=== PATIENT | male | born 1960 | race Caucasian/White ===

== ENCOUNTER 2020-06-26 13:28 | Outpatient (CLI) | payer OTHER, SELFPAY ==
--- NOTE | 2020-06-26 10:45 | DI.RAD_ITS ---
EXAM: XR RIBS LT W PA LAT CHEST CLINICAL HISTORY: left posterior rib pain, fall RIB PAIN LT SIDE, R07.81 PLEURODYNIA TECHNIQUE: 2D digital imaging was performed. COMPARISON: No exams were available for comparison FINDINGS: MEDIASTINUM: Normal. HEART: Normal. PULMONARY VASCULATURE: Normal. LUNGS: Clear. PLEURAL SPACE: No pleural effusion or pneumothorax. BONE:Normal. LEFT RIBS: There appears to be a nondisplaced fracture of the posterior aspect of the left 9th rib. OTHER FINDINGS:Normal. IMPRESSION: 1. No acute pulmonary findings. 2. Nondisplaced fracture of the posterior aspect of the left 9th rib. DATA REPOSITORY: RADIATION DOSE DELIVERED:
== END 2020-06-26 13:48 ==
PROVIDERS: Visit Provider Physician Assistant
DX: S22.31XA Fracture of one rib, right side, initial encounter for closed fracture (principal)
CPT/HCPCS: 71046; 71100

== ENCOUNTER 2023-06-11 06:40 | Emergency (ER) | payer OTHER, SELFPAY ==
[2023-06-11 06:45] VITALS: BP 190/90; PULSE 71; RESP 16; TEMP 36.5; O2SAT 94
[2023-06-11 06:57] VITALS: BP 190/90; PULSE 71; RESP 16; TEMP 36.5; O2SAT 94
--- NOTE | 2023-06-11 07:00 | DI.CT_ITS ---
Exam(s) CT HEAD CERVICAL SPINE WO EXAM: CT HEAD CERVICAL SPINE WO CLINICAL HISTORY: pain s/p fall. TECHNIQUE: Imaging Protocol: Axial computed tomography images with coronal and sagittal reformatted images were created and reviewed COMPARISON: No exams were available for comparison FINDINGS: Head CT Ventricles and Extra axial spaces: Normal in size and morphology for the patient's age. Hemorrhage: None. Cerebral parenchyma: No evidence of mass or acute infarct. Midline shift: None. Brainstem/Cerebellum: Normal. Calvarium: Normal. Visualized Paranasal sinuses/Mastoids: Mucosal thickening in the left frontal, left ethmoids and left maxillary sinuses. Soft tissues: Unremarkable. Cervical Spine CT BONES: Vertebral body heights are maintained. Alignment is normal. There is no evidence of acute frac ture. Mild degenerative disc changes and facet degenerative changes are seen . SOFT TISSUES: No paraspinal hematoma. The airway appears intact. No pneumothorax is seen at the lung apices. IMPRESSION: Head CT: No acute abnormality. C-spine CT: Mild degenerative changes, no acute abnormality. RADIATION DOSE DELIVERED: 1,495.48mGy.cm Total DLP DATA REPOSITORY: All CT scans at this facility are submitted to the National Radiology Data Registry (NRDR) Dose Index Registry (DIR) with the [employer] ([employer]). RADIATION OPTIMIZATION: All CT scans at this facility use at least one of these dose optimization te chniques: automated exposure control; mA and/or kV adjustment per patient size (includes targeted exa ms where dose is matched to clinical indication); or iterative reconstruction.
--- NOTE | 2023-06-11 07:10 | ED.GENADUL_ITS ---
HPI General Mode of arrival: ambulatory . Date/Time Provider Initiated Documentation: 06/11/23 07:00 . Limitations to Documentation: no limitations . Information obtained by: patient . History of Present Illness 62 year old M presents to the emergency department with the chief complaint of Headache, described as moderate, Quality is described as aching, and is localized to the head. Patient reports no radiation. Patient started experiencing this day(s) (4) and it has been constant. No relieving factors improve symptom(s), No exacerbating factors reported . Patient notes no other symptoms.. Patient did receive the following treatments prior to arrival, none Related Data Home Medications Medication Instructions Recorded Confirmed aspirin 81 mg tablet,delayed 81 mg PO DAILY 06/26/20 06/11/23 release atorvastatin 20 mg tablet 20 mg PO DAILY 06/26/20 06/11/23 omega-3 fatty acids 1,000 mg 1,000 mg PO BID 06/26/20 06/11/23 capsule (Fish Oil Concentrate) ascorbic acid (vitamin C) 1,000 mg 1 g PO DAILY 06/11/23 06/11/23 tablet cholecalciferol (vitamin D3) 125 5,000 unit PO DAILY 06/11/23 06/11/23 mcg (5,000 unit) capsule (D3-5000) losartan 100 1 tab PO DAILY 06/11/23 06/11/23 mg-hydrochlorothiazide 25 mg tablet (Hyzaar) metformin 1,000 mg tablet 1,000 mg PO BIDWMEAL 06/11/23 06/11/23 Allergies Allergy/AdvReac Type Severity Reaction Status Date / Time No Known Allergies Allergy Verified 06/11/23 06:49 General Stated Complaint: Headache LEA: 3 Review of Systems All systems reviewed & are unremarkable except as noted in HPI and below Constitutional Constitutional: Denies chills, Denies fever(s) and Denies weakness Cardiovascular Cardiovascular: Denies chest pain and Denies dyspnea Respiratory Respiratory: Denies cough and Denies dyspnea Gastrointestinal Gastrointestinal: Denies abdominal pain, Denies nausea and Denies vomiting Integumentary/Breasts Skin/Breast: Denies rash Neurologic Neurologic: Denies weakness Psychiatric Psychiatric: Denies depression Exam Const General: no acute distress Orientation: alert HENMT Head: normal to inspection Ears: external ears normal General nose exam: external nose normal Mouth: moist mucous membranes Eyes General: appearance normal, both eyes and all related structures Neck Neck: normal visual inspection, full ROM, no meningeal signs and trachea midline Resp Effort & Inspection: normal respiratory effort and able to speak in complete sentences Cardio Rate: regular rate Skin General skin exam: no rashes or lesions noted Neuro General: patient alert and patient oriented x3 Extrem General: normal to inspection Psych Mental Status: mental status grossly normal Course Vital Signs Vital signs: Vital Signs Temperature 36.5 C 06/11/23 06:45 Pulse 71 06/11/23 06:45 Respiratory Rate 16 06/11/23 06:45 Blood Pressure 190/90 H 06/11/23 06:45 Pulse Oximetry 94 06/11/23 06:45 Temperature 36.5 C 06/11/23 06:57 Temperature Source Temporal Artery Scan 06/11/23 06:57 Pulse 71 06/11/23 06:57 Respiratory Rate 16 06/11/23 06:57 Respiratory Effort Normal, Non-Labored 06/11/23 06:57 Blood Pressure 190/90 H 06/11/23 06:57 Blood Pressure Position Supine 06/11/23 06:57 Pulse Oximetry 94 06/11/23 06:57 Oxygen Delivery Method Room Air 06/11/23 06:57 Oxygen Flow Rate 0 06/11/23 06:57 Pain Level 6 06/11/23 06:57 Medical Decision Making 62-year-old male with a history of hypertension, diabetes, who comes in with complaint of headache. He states on Friday slipped on ice and fell had no loss of consciousness, is unsure if he hit his head. He states since then he had some neck pain which is more or less resolved but still has a headache. Denies any fevers, vomiting, chest pain, abdominal pain, back pain. He localizes the pain to the front of his head. He is alert and oriented x 4 with a normal gait on arrival, has no focal deficits. Cranial nerves II through XII intact. No significant signs of trauma to the head. He has no midline C-spine tenderness but is tender over the lateral paraspinous muscles bilaterally especially near the occiput. No midline T or L-spine tenderness no chest or abdominal tenderness. Suspect he has a headache from a mild concussion, but given his age and continued head pain will obtain CT head and C-spine to evaluate for traumatic injuries. Would like to give him a nonsteroidal but will rule out hemorrhage before giving this Patient is stable, still ambulating with normal gait, no focal deficits. CT negative for acute findings, suspect concussion. Patient is stable for discharge, advised to follow-up with either his primary care or express care if not better within a week or 2. Return precautions given Differential Diagnosis Differential Diagnosis: concussion, tbi Imaging Data Radiologic Study: Attestation: I personally reviewed and interpreted this imaging study as follows: Imaging: CT Scan Radiologist's impression: IMPRESSION: No CT evidence for acute intracranial abnormality. IMPRESSION: 1. No acute fracture or dislocation identified. 2. Spondylosis without significant spinal stenosis evident. The discs and integrity of the cord could be better evaluated by means of MRI as clinically appropriate. Quality:SDOH Health Related Social Needs: No Data to Display PFSH All Active Problems (Updated 06/11/23 @ 08:45 by Esdras Neumann MD) Cervical strain (Acute) Concussion (Acute) Rib pain on left side (Acute) Social History Smoking/Tobacco Use Status: Never Smoking risk assessment performed?: Yes Alcohol Intake: current Alcohol Intake frequency: holidays/special occasions only Substance use type: does not use Housing: apartment Do you feel safe at home: Yes Do you feel safe in your relationship?: Yes Discharge Plan Disposition Patient Disposition: Home Condition: Stable Discharge Details Clinical Impression: Concussion, Cervical strain Primary Care Provider: Unknown,Unknown ED Provider: Esdras Neumann Home Meds and New Rx's Prescriptions: Continued atorvastatin 20 mg tablet 20 mg PO DAILY aspirin 81 mg tablet,delayed release (DR/EC) 81 mg PO DAILY omega-3 fatty acids [Fish Oil Concentrate] 1,000 mg capsule 1,000 mg PO BID metformin 1,000 mg tablet 1,000 mg PO BIDWMEAL losartan-hydrochlorothiazide [Hyzaar] 100-25 mg tablet 1 tab PO DAILY ascorbic acid (vitamin C) 1,000 mg tablet 1 g PO DAILY cholecalciferol (vitamin D3) [D3-5000] 125 mcg (5,000 unit) capsule 5,000 unit PO DAILY Discharge Instructions Instructions: Concussion (ED) Additional Instructions: Your CAT scan did not show any concerning findings at this time You can take 600 mg ibuprofen and 1000 mg of acetaminophen every 6 hours as needed If not better within 1 to 2 weeks follow-up with express care or your primary care if you are back home If you feel more ill, have persistent vomiting, or any symptoms such as fevers return to the emergency department
[2023-06-11] MEDS: Prochlorperazine 10 MG/2 ML VIAL IM (07:15)
--- NOTE | 2023-06-11 08:38 | DI.VRAD_ITS ---
PROCEDURE INFORMATION: Exam: CT Head Without Contrast Exam date and time: 06/11/2023 7:25 AM Age: 62 years old Clinical indication: Injury or trauma; Blunt trauma (contusions or hematomas); Patient HX: Pain S/P fall on 06/07/23 TECHNIQUE: Imaging protocol: Computed tomography of the head without contrast. COMPARISON: No relevant prior studies available. FINDINGS: Brain: Normal. No hemorrhage. Unremarkable white matter. No mass effect. Cerebral ventricles: No ventriculomegaly. Paranasal sinuses: Mild chronic mucosal disease involves the bilateral maxillary and left frontal sinuses, and some ethmoid air cells bilaterally. Mastoid air cells: Visualized mastoid air cells are well aerated. Bones/joints: Unremarkable. No acute fracture. Soft tissues: Unremarkable. Vasculature: Intracranial atherosclerotic vascular calcifications are noted. IMPRESSION: No CT evidence for acute intracranial abnormality. PROCEDURE INFORMATION: Exam: CT Cervical Spine Without Contrast Exam date and time: 06/11/2023 7:25 AM Age: 62 years old Clinical indication: Injury or trauma; Blunt trauma (contusions or hematomas); Patient HX: Pain S/P fall on 06/07/23 TECHNIQUE: Imaging protocol: Computed tomography of the cervical spine without contrast. COMPARISON: CR XR RIBS LT W PA LAT CHEST 06/26/2020 1:44 PM FINDINGS: Bones/joints: Vertebral body heights are intact. Straightening of the cervical lordotic curve could be secondary to muscle spasm or positioning. Spinal alignment is otherwise maintained. There are mild productive changes about the dens and anterior C1 arch. No acute fracture is identified. Discs/Spinal canal/Neural foramina: There is multilevel spondylosis with variable osteophytic encroachment of several neural foramina. CT is not optimal for the evaluation of the discs, neural foramina or spinal canal or cord. No significant spinal stenosis is evident. Lungs: The visualized lung apices are clear. Pleural spaces: No apical pneumothorax is identified. Vasculature: Atherosclerotic vascular calcifications are noted. Soft tissues: The prevertebral soft tissues are not significantly swollen. IMPRESSION: 1. No acute fracture or dislocation identified. 2. Spondylosis without significant spinal stenosis evident. The discs and integrity of the cord could be better evaluated by means of MRI as clinically appropriate. Dictated and Authenticated by: Esdras Yeboah MD. Ordering:NAKITA Dewitt MD
[2023-06-11 08:55] VITALS: BP 168/88; PULSE 74; RESP 16; O2SAT 93
== END 2023-06-11 09:01 | disposition home or self-care (01) ==
LOC: ER 09:10
PROVIDERS: Emergency Provider Emergency Medicine
DX: S06.0X0A Concussion without loss of consciousness, initial encounter (principal); S16.1XXA Strain of muscle, fascia and tendon at neck level, initial encounter; I10 Essential (primary) hypertension; E11.9 Type 2 diabetes mellitus without complications; Z79.84 Long term (current) use of oral hypoglycemic drugs; Z79.82 Long term (current) use of aspirin; W00.0XXA Fall on same level due to ice and snow, initial encounter; Y93.01 Activity, walking, marching and hiking
CPT/HCPCS: 99284; 70450; 72125; J0780

== ENCOUNTER 2024-08-05 02:26 | Outpatient (CLI) | payer OTHER, SELFPAY ==
[2024-08-05 12:40] LABS: Prothrombin Time 10.2 sec (9.1-11.1)
[2024-08-05 13:01] LABS: ALT 109 U/L (16-63); AST 38 U/L (15-37); Albumin 4.1 g/dL (3.4-5.0); Alkaline Phosphatase 48 U/L (46-116); Anion Gap 7.7 mmol/L (3-11); BUN 17 mg/dL (7-18); Bilirubin, Total 0.8 mg/dL (0.2-1.0); CO2 30.3 mmol/L (21.0-32.0); CREATININE 1.2 mg/dL (0.70-1.30); Calcium 9.7 mg/dL (8.5-10.1); Calculated LDL 92 mg/dL (<100); Chloride 106 mmol/L (98-107); Cholesterol 166 mg/dL (<200); Estimated GFR 68.38 (mL/min/1.73m2); Glucose 192 mg/dL (74-106); HDL Cholesterol 48 mg/dL (>or=40); Potassium 3.9 mmol/L (3.5-5.1); Sodium 144 mmol/L (136-145); Total Protein 7.6 g/dL (6.4-8.2); Triglyceride 133 mg/dL (<150)
[2024-08-05 18:37] LABS: PSA, Screening 1.4 ng/mL (<=4.5)
== END 2024-08-05 02:27 | disposition home or self-care (01) ==
PROVIDERS: Visit Provider Student in an Organized Health Care Education/Training Program
DX: Z12.5 Encounter for screening for malignant neoplasm of prostate (principal); E78.2 Mixed hyperlipidemia; R74.01 Elevation of levels of liver transaminase levels; I10 Essential (primary) hypertension; E11.9 Type 2 diabetes mellitus without complications
CPT/HCPCS: 36415; 80053; 80061; 84153; 85610

== ENCOUNTER 2025-03-10 08:58 | Outpatient (CLI) | payer OTHER, SELFPAY ==
[2025-03-10 10:20] LABS: Abs Immature Grans 0.01 10^3/uL (0.0-0.06); HCT 40.8 % (40.0-50.0); HGB 13.9 g/dL (13.5-17.5); Immature Grans % 0.2 %; MCH 30.2 pg (27.0-33.0); MCHC 34.1 % (32.0-36.0); MCV 89 fL (80-95); MPV 10.6 fL (8.0-11.0); Platelet Count 226 10^3/uL (130-400); RBC 4.61 10^6/uL (4.36-5.78); RDW 12.5 % (11.8-14.1); RDW-SD 40.6 fL; WBC 4.53 10^3/uL (4.4-10.8)
[2025-03-10 10:42] LABS: ALT 66 U/L (10-49); AST 31 U/L (<34); Albumin 4.2 g/dL (3.4-5.0); Alkaline Phosphatase 46 U/L (46-116); Anion Gap 10.3 mmol/L (3-11); BUN 17 mg/dL (9-23); Bilirubin, Total 0.80 mg/dL (0.2-1.2); CO2 27.7 mmol/L (20.0-31.0); Calcium 9.2 mg/dL (8.3-10.6); Chloride 107 mmol/L (98-107); Glucose 187 mg/dL (74-106); Potassium 4.3 mmol/L (3.5-5.1); Sodium 145 mmol/L (136-145); Total Protein 6.7 g/dL (5.7-8.2)
== END 2025-03-10 08:59 | disposition home or self-care (01) ==
PROVIDERS: Visit Provider Physician Assistant
DX: D12.3 Benign neoplasm of transverse colon (principal)
CPT/HCPCS: 36415; 80053; 85025